=== PATIENT | female | born 1985 | race Caucasian/White ===

== ENCOUNTER 2016-09-12 15:57 | Emergency (ER) | payer OTHER ==
[2016-09-12 16:13] VITALS: BP 132/80
== END 2016-09-12 18:52 | disposition home or self-care (01) ==
LOC: ED 15:57
DX: S92.515A Nondisplaced fracture of proximal phalanx of left lesser toe(s), initial encounter for closed fracture (principal); W22.01XA Walked into wall, initial encounter; Y93.02 Activity, running; Y92.89 Other specified places as the place of occurrence of the external cause; Y99.8 Other external cause status; S99.922A Unspecified injury of left foot, initial encounter